=== PATIENT | male | born 1965 | race Caucasian/White ===

== ENCOUNTER 2024-06-23 12:22 | Day surgery (SDC) | payer BC ==
[2024-06-23] MEDS: Lactated Ringers 1,000 ML IV SCH (12:54)
[2024-06-23] MEDS ORDERED: Lidocaine 2% 5 ML SDV ONE (13:46)
[2024-06-23] MEDS ORDERED: propofoL 50 ML ONE (13:47)
== END 2024-06-23 15:16 | disposition home or self-care (01) ==
LOC: MW.SDS 12:22
PROVIDERS: ATTEND Surgery
DX: K57.30 Diverticulosis of large intestine without perforation or abscess without bleeding (principal); R19.5 Other fecal abnormalities; I10 Essential (primary) hypertension; Z86.010 Personal history of colon polyps; Z87.891 Personal history of nicotine dependence
CPT/HCPCS: 45378; J2704; J7120; J3490